=== PATIENT | male | born 1950 | race Caucasian/White ===

== ENCOUNTER 2021-01-12 09:32 | Outpatient (CLI) | payer OTHER | END 2021-01-12 09:33 | disposition home or self-care (01) | LOC: CSHCT 09:32 | PROVIDERS: ATTEND Urology | DX: N20.0 Calculus of kidney (principal); K57.90 Diverticulosis of intestine, part unspecified, without perforation or abscess without bleeding; K76.89 Other specified diseases of liver | CPT/HCPCS: 74176 ==